=== PATIENT | female | born 1975 | race Caucasian/White ===

== ENCOUNTER 2024-04-08 20:07 | Emergency (ER) | payer MEDICAID ==
[~2024-04-08] VITALS: Ht 157.5 cm; Wt 59.0 kg
[2024-04-08] MEDS ORDERED: PRED50TA PO (20:26)
[2024-04-08] MEDS ORDERED: predniSONE 20 MG TABLET ONE (20:38)
[2024-04-08] MEDS: predniSONE 20 MG TABLET PO ONE (20:41)
[2024-04-08 20:43] VITALS: O2SAT 97
[2024-04-08] MEDS: ALBUTEROL FS 2.5 MG/3 ML VIAL.NEB NEB ONE ×2 (20:43→21:33)
[2024-04-08] MEDS: IPRATROPIUM NEB FS 0.5 MG/2.5 ML AMPUL.NEB NEB ONE (20:43)
[2024-04-08] MEDS ORDERED: ALBUTEROL FS 2.5 MG/3 ML VIAL.NEB ONE ×2 (20:46→21:20)
[2024-04-08] MEDS ORDERED: IPRATROPIUM NEB FS 0.5 MG/2.5 ML AMPUL.NEB ONE (20:46)
[2024-04-08 20:55] VITALS: O2SAT 99
[2024-04-08 21:33] VITALS: O2SAT 97
[2024-04-08] MEDS ORDERED: ALBU18HF2 INH (21:46)
[2024-04-08 21:48] VITALS: O2SAT 99
[2024-04-08 21:53] VITALS: BP 123/94; TEMP 98.1; O2SAT 99
== END 2024-04-08 21:53 | disposition home or self-care (01) ==
LOC: ER 20:33
DX: J45.901 Unspecified asthma with (acute) exacerbation (principal); J06.9 Acute upper respiratory infection, unspecified; Z79.52 Long term (current) use of systemic steroids; Z88.8 Allergy status to other drugs, medicaments and biological substances
CPT/HCPCS: 99283; 94640; J7512

== ENCOUNTER 2024-05-31 19:40 | Emergency (ER) | payer MEDICAID, OTHER ==
[~2024-05-31 19:40] MED LIST: ALBU18HF2 INH; PRED50TA PO
== END 2024-05-31 22:00 | disposition left against medical advice (07) ==
LOC: ER 19:45
DX: J45.909 Unspecified asthma, uncomplicated (principal); Z53.21 Procedure and treatment not carried out due to patient leaving prior to being seen by health care provider